=== PATIENT | female | born 1940 | race Caucasian/White ===

== ENCOUNTER → 2017-12-07 13:41 | Outpatient (CLI) | payer MEDICARE, OTHER, SELFPAY ==
[2017-12-07 14:33] LABS: Absolute Lymphocyte Count 2.69 X10^3/ul (0.83-4.51); Absolute Neutrophil Count 3.8 X10^3/uL (2.0-7.7); Basophil# 0.07 X10^3/uL; Eosinophil# 0.17 X10^3/uL; Eosinophils% 2.4 % (0-5); Hematocrit 40.6 % (37-47); Hemoglobin 13.3 g/dl (12.0-15.0); Lymphocyte # 2.69 X10^3/ul (4.0); Lymphocyte % 37.9 % (19-41); Mean Corp Hgb Conc 32.8 g/gl (32-36); Mean Corpuscular Volume 91.4 fL (81-99); Mean Platelet Vol. 9.7 fl (6.2-12.0); Monocyte# 0.35 X10^3/uL; Monocyte% 4.9 % (0-10); Neutrophil # 3.81 X10^3/uL (2.7-7.7); Neutrophil % 53.7 % (47-70); Platelet Count 441 K/mm3 (150-450); RBC Distribution Width CV 13.5 % (11.6-14.6); RBC Distribution Width SD 44.8 fl (35.1-43.9); Red Blood Count 4.44 M/mm3 (4.2-5.4); White Blood Count 7.1 K/mm3 (4.4-11.0)
[2017-12-07 14:38] LABS: POSITIVE COUNT NO; POSITIVE DIFFERENTIAL NO; POSITIVE MORPHOLOGY NO
[2017-12-07 14:48] LABS: ALB/GLOB Ratio 1.2 RATIO (0.9-2.4); AST(SGOT) 20 U/L (15-37); Alanine Aminotransfer ALT/SGPT 24 U/L (13-56); Albumin, Serum 4.2 g/dL (3.2-5.0); Alkaline Phosphatase 87 U/L (45-117); Anion Gap 5 (5-15); BUN 15 mg/dL (7-18); BUN/Creat Ratio 21.1 RATIO (10-20); Chloride 104 mmol/L (98-107); Creatinine, Serum 0.71 mg/dL (0.55-1.02); EST Glomerular Filtration Rate 85 mL/min (>60); Est Glom Filt Rate - Afr Amer 103 mL/min (>60); Globulin 3.4 g/dL (2.2-4.2); Glucose 81 mg/dL (74-106); Potassium 4.6 mmol/L (3.5-5.1); Protein, Total 7.6 g/dL (6.4-8.2); Sodium Level 139 mmol/L (136-145); Thyroid Stim Hormone (TSH) 1.78 uIU/mL (0.358-3.74)
[2017-12-07 14:50] LABS: Vitamin D,25 Hydroxy 29.6 ng/mL (29.95-100.01)
== END ==
PROVIDERS: Family Provider Family Medicine Geriatric Medicine; PCP Family Medicine Geriatric Medicine; Visit Provider Family Medicine Geriatric Medicine
DX: E55.9 Vitamin D deficiency, unspecified (principal); R53.83 Other fatigue
CPT/HCPCS: 36415; 80053; 82306; 84443; 85025

== ENCOUNTER → 2019-03-04 | Outpatient (CLI) | payer MEDICARE, OTHER, SELFPAY ==
[2017-05-11 22:19] VITALS: BMI 21.9
--- NOTE | 2019-03-04 10:45 | FLU_PTH ---
PATIENT: AISHA UNDERWOOD LOC: [facility] U#:[id number] AGE/SX: 79/F ROOM: RE03/04/[address]: Dr. Guadalupe Mitchell MD : 1940 BED: DIS: 03/04/2019 SPEC #: [id number] RECD: 03/04/19 18:55 STATUS: JEISON REMarkell #: [id number] STACI: 03/04/19 10:[address]: Guadalupe Mitchell DEPT: CYTOLOGY RECD BY: Agatha Patel ENTERED: 03/07/19 09:59 SP TYPE: Fluid OTHR DR: Dr. Jose Centeno MD Tissues: CYST Procedures: Special Stain Group II Surgery Specimen Level IV Cytospin Fluid HEADER OPERATION: Ultrasound guided left breast cyst aspiration PRE-OP DIAGNOSIS: Left breast cyst TISSUE SUBMITTED: Left breast cyst fluid for cytology DIAGNOSIS CYTOLOGY Fine needle aspiration, left breast cyst fluid (cytospin and cell block): Rare apocrine cells present. See comment. AM:quinten 03/08/19 COMMENT There is no evidence of malignancy. Clinical correlation is suggested. CYTOLOGY STUDY Slides are reviewed. CYTOLOGY GROSS Received is 30 ml of colorless hazy fluid labeled with the patient's name and and designated per the requisition as Left breast cyst fluid. Submitted for cytology preparation including cell block. /CC:cc 03/07/19 TC:5 CPT: 25028, 57916
== END | disposition home or self-care (01) ==
LOC: LABSPEC 03-07 10:55
PROVIDERS: Family Provider Family Medicine Geriatric Medicine; PCP Family Medicine Geriatric Medicine; Referring Provider Surgery; Visit Provider Surgery
DX: N60.01 Solitary cyst of right breast (principal)
CPT/HCPCS: 88108; 88304; 88305; 88313

== ENCOUNTER → 2020-10-16 12:18 | Outpatient (CLI) | payer MEDICARE, OTHER, SELFPAY ==
--- NOTE | 2020-10-16 | IMM_PTH ---
PATIENT: AISHA UNDERWOOD LOC: [facility] U#:[id number] AGE/SX: 85/F ROOM: RE10/16/[address]: Dr. Guadalupe Mitchell MD : 1940 BED: DIS: SPEC #: [id number] RECD: 10/18/20 11:37 STATUS: JEISON REQ #: [id number] STACI: 10/16/20 00:[address]: Guadalupe Mitchell DEPT: IMMUNOHISTOCHEMISTRY RECD BY: Kelsy Aguilar ENTERED: 10/18/20 11:38 SP TYPE: IMMUNO OTHR DR: Dr. Lupis Amezcua MD Tissues: Right breast, NOS Procedures: CALPONIN-1 (add) CK8 (add) E-CAD (add) HER2 YEE (add) CO (add) P40 (add) ER (initial) PHYSICIAN & INSTITUTION [place] [id number] SPECIMEN INFORMATION: Tissue Source: Right breast, 7 o'clock posterior depth, stereotactic core biopsy Clinical Info: Right breast, 7 o'clock posterior depth Specimen Number: [id number] #2 CPT code: 61046, 40676 x3, 80746 x3 METHODOLOGY: Deparaffinized sections of prefer/formalin-fixed tissue or PAP/DQ stained slides are incubated with monoclonal/polyclonal antibodies/oligonucleotide probes. Localization is made via biotin free immunoperoxidase method. Appropriate controls are performed and reacted as expected. Results on target cell population are indicated in the following table: RESULTS: ANTIBODY / CLONE RESULT Block 2 E-Cad (ECH-6) positive CK8 (88zqgbH70) positive Calponin-1 (NY645Q) positive P40 (BC28) positive MORPHOMETRIC ANALYSIS ER (clone 6F11) positive (>95%, strong intensity) CO (clone 16/1E2) positive (variable, 45 to 95%, moderate intensity) Her-2Neu (clone CB11) negative (0) The prognostic test for HER2 is performed on formalin-fixed paraffin embedded tissue. A 3+ (positive) staining pattern is defined as intense, homogeneous, complete, circumferential membranous staining in >10% of contiguous tumor cells. A similar weak (2+) staining pattern is interpreted as equivocal. LEBRON follow-up testing is recommended for all equivocal cases. Positivity/negativity for ER/CO is reported if > or < 1% of the tumor cells are immuno- reactive, respectively. The ASCO/CAP criteria is used for scoring. Reference: Journal of Clinical Oncology, 2013; 31:4866-2231 & 2010; 16:8807-3985. Duration of fixation: 31 Hrs; Sample Adequate: Yes. These assays have not been validated on decalcified tissues. Results should be interpreted with caution given the likelihood of false negativity on decalcified specimens. These tests were developed and their performance characteristics determined by [facility]. They may not have been cleared or approved by the U.S. Food and Drug Administration. The FDA has determined that such clearance or approval is not necessary. The above immunohistochemical/dualISH markers are ordered and reviewed by the Pathologist. INTERPRETATION: Right breast, 7 o'clock posterior depth, stereotactic core biopsy: Ductal carcinoma in situ, intermediate nuclear grade. SJ:quinten 10/19/2020
--- NOTE | 2020-10-16 12:30 | BRBX_PTH ---
PATIENT: AISHA UNDERWOOD LOC: [facility] U#:[id number] AGE/SX: 85/F ROOM: RE10/16/[address]: Dr. Guadalupe Mitchell MD : 1940 BED: DIS: SPEC #: [id number] RECD: 10/16/20 13:26 STATUS: JEISON REQ #: [id number] STACI: 10/16/20 12:[address]: Guadalupe Mitchell DEPT: SURGICAL PATHOLOGY RECD BY: Agatha Patel ENTERED: 10/17/20 08:48 SP TYPE: BREAST BX OTHR DR: Dr. Lupis Amezcua MD Tissues: Right breast, NOS Procedures: Surgery Specimen Level IV HEADER OPERATION: Right breast stereotactic biopsy PRE-OP DIAGNOSIS: Right breast 7 o'clock posterior depth TISSUE SUBMITTED: Right breast core tissue ISCHEMIC TIME: 1 minute FIXATION TIME: 31 hours MICROSCOPIC DIAGNOSIS Right breast, 7 o'clock, posterior depth, stereotactic core biopsy: Ductal carcinoma in situ with the following characteristics: Pattern - comedo, solid and cribriform. Nuclear Grade - intermediate Necrosis - present, central (Expansive, comedo necrosis). Calcifications - present See comment. GLORY:quinten 10/18/2020 COMMENT Immunohistochemistry ([id number]) supports the above diagnosis. ER/IL/Woi0xkc studies are being performed on sections of tumor and the results from this study will be reported separately ([id number]). Case has been reviewed in consultation with Dr. Belle who concurs with the above diagnosis. IDC:AM MICROSCOPIC DESCRIPTION Slides are reviewed. GROSS DESCRIPTION Received in fixative is one container labeled with the patient name and designated right breast. The specimen consists of multiple elongated fragments of [place]-yellow fibroadipose mixed with blood clot tissue that in aggregate measure 7.5 x 3 x 0.3 cm. The entire specimen is submitted in three cassettes. / GLORY:quinten 10/17/20 TC:0 CPT: 64082 ADDENDUM ADDENDUM ADDENDUM ADDENDUM ADDENDUM ADDENDUM ADDENDUM ADDENDUM ADDENDUM ADDENDUM ADDENDUM 11/22/2020 10:22 ADDENDUM 11/22/2020 10:22 ADDENDUM 11/22/2020 10:22 ADDENDUM 11/22/2020 10:22 ADDENDUM 11/22/2020 10:22 This addendum is added to incorporate an outside pathology consultation report. The case was examined at [facility] (#[id number]) and the following diagnosis was rendered. 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 Please see complete above mentioned consultation report in EMR
--- NOTE | 2020-10-17 16:02 | OP.PCM_ITS ---
Report of Operation Date of Procedure: 10/16/20 Pre-Operative Diagnosis: abnormal calcifications on right breast mammograms Post-Operative Diagnosis: same Surgery/Procedure Performed:: right breast stereotactic breast biopsy Description of Surgical Findings:: wide swath of calcifications in lower outer right breast, marker clip could not be visualized in conventional mammogram views but biopsy cavity pockets were visualized. Type of Anesthesia:: Local - 1% xylocaine Specimen's removed: right breast tissue Estimated Blood Loss (mL): minimal Description of Procedure: After informed consent was given, the patient was brought into the Breast Biopsy suite. Appropriate time out protocol was followed. The patient was placed in the prone position on the stereotactic biopsy table. The patient?s right breast was then placed in the opening at the head of the biopsy table. A carton marker machine compression mammogram was then obtained in the lateral view. The suspicious radiological lesion was thus identified. Stereo pictures of the lesion were then taken for XYZ coordinates. The Mammotome biopsy stylus was then positioned where it would be entering into the patient?s breast. The skin at this site was then cleansed with a surgical skin preparation. The skin and subcutaneous tissues at this site were then infiltrated with 1% xylocaine. A small skin incision was made with an 11 blade scalpel. The biopsy stylus was then positioned into the patient?s breast at the proper coordinates of depth. Using the Mammotome vacuum-assist device, several core samples of breast tissue were obtained. A specimen mammogram was the obtained. It revealed that the abnormal calcifications were within the specimen. I reviewed this personally and conclud ed that the tissue sampling was adequate for this site. The patient was extremely uncomfortable with complaint of neck pain on the biopsy table and therefore no further sampling was done. The abnormality was a wide swath of calcifications in the area - extending 3-4 cm and it had been planned to take two biopsies, however, it was felt that patient would not tolerate this and therefore will await pathology results.. A hemostatic marker clip was then placed into the biopsy cavity and a carton marker machine film revealed that it was properly deployed. The patient was then placed in the upright sitting position and pressure was applied to the breast until no active bleeding was noted. Steristrips were applied to reapproximate the skin. A unilateral mammogram in the CC and MLO view were then taken for which the marker clip could not be visualized due to the positioning of the patient. Multiple view, including exaggerated views were obtained, however at this point in time, patient was uncomfortable and therefore further studies were aborted. Will await pathology results. The patient tolerated the procedure and was discharged from the Breast Biopsy suite in good condition. - Complications none noted
== END ==
PROVIDERS: PCP Internal Medicine; Referring Provider Surgery; Visit Provider Surgery
DX: D05.11 Intraductal carcinoma in situ of right breast (principal)
CPT/HCPCS: 19081; 88305; 88341; 88342; J7050; A4648

== ENCOUNTER 2023-06-26 07:49 | Emergency (ER) | payer MEDICARE, OTHER, SELFPAY ==
[2023-06-26 07:50] VITALS: BP 154/81; PULSE 95; RESP 16; TEMP 37.7; O2SAT 98; BMI 24.3
[2023-06-26 08:06] VITALS: O2SAT 98
--- NOTE | 2023-06-26 08:13 | ED.VIS.CHEST ---
HPI History of Present Illness Chief Complaint: Cold Sx Informant: patient Onset/Context/Timing Onset: Month(s) Activity at onset: gradual Timing: Continuous Quality: Positive for Burning Location: Substernal Worsened By: Eating Relieved By: Nothing Associated Symptoms: Positive for Nausea, Cough, Lightheadedness and Acid Reflux; Negative for Vomiting, Diaphoresis, Dyspnea, Fever or Palpitations Narrative Narrative: Patient presents with lower substernal chest pain that has been constant for months. Patient states that she went to the urgent care today and then was referred to the emergency department. Patient describes her pain as burning. Patient states it is over the lower substernal area. Patient states it is worse with eating. Patient states nothing makes it better. Patient admits to some nausea but denies any vomiting. Patient admits to a chronic cough. Patient also admits to some lightheadedness. Patient denies any diaphoresis. Patient denies any palpitations. [facility] Medical History Breast cancer Bronchitis COVID Home Medications esomeprazole magnesium 20 mg capsule,delayed release (Nexium) 20 mg PO PRN PRN REFLUX 05/11/17 [History Last Taken Unknown] Allergy/AdvReac Type Severity Reaction Status Date / Time amoxicillin Allergy Mild Other Verified 06/26/23 08:00 lincomycin [From Lincocin] Allergy Hives Verified 06/26/23 07:50 Sulfa (Sulfonamide Allergy Hives Verified 06/26/23 07:50 Antibiotics) alendronate sodium AdvReac Mild Other Verified 06/26/23 08:00 [From Fosamax] Surgical History History of appendectomy Social History Smoking Status: Never smoker ROS ROS ED Constitutional Constitutional ED: Reports fever(s) and subjective; Denies chills Eyes Eyes: Denies blurry vision or change in vision ENT ENT ED: Reports ear pain and sore throat; Denies rhinorrhea Cardiovascular Cardiovascular: Reports chest pain; Denies palpitations Respiratory/Chest Respiratory/Chest: Reports cough; Denies dyspnea Gastrointestinal Gastrointestinal: Reports nausea; Denies vomiting Genitourinary Genitourinary ED: Denies dysuria or hematuria Musculoskeletal Musculoskeletal: Reports arthralgias and myalgias Integumentary Denies abscess or rash Neurologic Neurologic: Reports headache(s); Denies weakness Allergic/Immunologic Allergic/Immunologic ED: Denies mouth swelling or urticaria EXAM Physical Exam Const Vital Signs: 06/26/23 07:50 06/26/23 08:02 06/26/23 08:06 Temperature 99.9 F H Temperature Source Temporal Pulse Rate 95 Respiratory Rate 16 Respiratory Effort Normal Non-Labored Normal Non-Labored Respiratory Depth Respiratory Pattern Normal Blood Pressure 154/81 H Blood Pressure Mean 105 Pulse Ox 98 Oxygen Delivery Method Room Air 06/26/23 08:06 Temperature Temperature Source Pulse Rate Respiratory Rate Respiratory Effort Normal Non-Labored Respiratory Depth Normal Respiratory Pattern Normal Blood Pressure Blood Pressure Mean Pulse Ox Oxygen Delivery Method Room Air Positive well nourished and well developed General Appearance ED: well developed and NAD HEENT Reports moist mucous membranes Neck supple and no JVD Chest Wall inspection of chest normal Chest Narrative: There is mild tenderness over the lower substernal area. Resp normal respiratory effort and clear to auscultation bilaterally Cardio regular rate and regular rhythm GI soft to palpation and non-distended GI Narrative: There is mild tenderness over the epigastric area. There is no rebound or guarding noted. Extremity normal to inspection General Extremety ED: Negative for edema or tenderness General Extremity: Negative for edema Neuro oriented x3, CN's II-XII intact bilaterally and no sensory deficits noted Sensorium / Orientation: awake and alert Motor Exam: strength 5/5 throughout Psych mental status grossly normal Heart Score History: Slightly/Non-Suspicious ECG: Normal Age: >/= 65 years Risk Factors: No Risk Factors Score: 2 MDM MDM MDM Narrative Medical decision making narrative: Differential diagnosis includes gastritis, gastroesophageal reflux disease, esophagitis, cardiac dysrhythmia, cardiac ischemia, pneumonia, COVID-19 infection, and influenza infection. EKG will be obtained to assess for cardiac dysrhythmia and cardiac ischemia. Chest x-ray will be obtained to assess for pneumonia and pneumothorax. CBC will be obtained to assess for leukocytosis and anemia. Basic metabolic profile will be obtained to assess for electrolyte abnormality and renal function. High-sensitivity troponin will be obtained to assess for cardiac ischemia. COVID-19 rapid antigen will be obtained to assess for COVID-19 infection. Influenza A and influenza B antigens will be obtained to assess for influenza infection. Lab Data Attestation: I reviewed the patient's lab results. Lab results narrative: CBC was reviewed and was within normal limits. Basic metabolic profile was reviewed and was within normal limits. High-sensitivity troponin was reviewed and was normal at 7. Urinalysis was reviewed. There is no evidence of urinary tract infection or hematuria. COVID-19 rapid antigen was reviewed and was negative. Influenza A and influenza B antigens were reviewed and were negative. Labs: Laboratory Results - last 24 hr 06/26/23 06/26/23 08:34 09:17 WBC 7.8 RBC 4.42 Hgb 12.8 Hct 40.3 MCV 91.2 MCH 29.0 MCHC 31.8 L RDW Std Deviation 44.4 H RDW Coeff of Karina 13.2 Plt Count 291 MPV 8.8 Immature Gran % (Auto) 0.300 Neut % (Auto) 68.3 Lymph % (Auto) 20.7 [place] % (Auto) 8.2 Eos % (Auto) 1.9 Baso % (Auto) 0.6 Absolute Neuts (auto) 5.3 Absolute Lymphs (auto) 1.61 Nucleated RBC % 0 Sodium 136 Potassium 3.6 Chloride 102 Carbon Dioxide 31.0 Anion Gap 3 L BUN 15 Creatinine 0.74 Estim Creat Clear Calc 39.03 Est GFR (MDRD) Af Amer 97 Est GFR (MDRD) Non-Af 80 BUN/Creatinine Ratio 20.4 H Glucose 105 Calcium 9.0 Troponin I High Sens 7 Urine Color Yellow Urine Clarity Clear Urine pH 6.0 Ur Specific [place] 1.020 Urine Protein 15 H Urine Glucose (UA) Normal Urine Ketones Negative Urine Occult Blood Negative Urine Nitrite Negative Urine Bilirubin Negative Urine Urobilinogen Normal Ur Leukocyte Esterase Negative Urine RBC 0 SEEN Urine WBC 0 SEEN Ur Squamous Epith Cells 0-5 SEEN Urine Bacteria 0 SEEN Urine Mucus 0 SEEN Radiography Diagnostic Testing: Clinical Impression(s) from Imaging Studies Chest X-Ray 06/26/23 08:20 IMPRESSION: Hyperinflation. No acute abnormality is seen. Electronically Signed: Leopoldo Carey MD at 9:26 EST , Portable 1 view chest x-ray was obtained. On my independent interpretation, lung ruiz are clear. There is normal cardiac silhouette. Bony thorax is normal. There is no acute process noted. Radiologist also interpreted the x-ray and agrees. EKG Initial EKG: Attestation: I personally reviewed and interpreted this EKG as follows: Interpretation: Sinus Rhythm (95) and No Acute Injury Pattern Comments: EKG was obtained. On my independent interpretation, it showed a normal sinus rhythm with a rate of 95. NE interval, QRS interval, and QTc intervals were all normal. [place] was normal. There are no acute ST or T wave changes. Prior: Unchanged (05/12/2017) Treatment and Re-Evaluation :: Patient was given a GI cocktail here. Patient was given aspirin. Patient is feeling better on reevaluation. Patient states her symptoms have completely resolved. Patient was advised that this is most likely from esophageal reflux and esophagitis. Patient was instructed to continue her Nexium as previously prescribed. Patient was instructed to follow-up with her primary care physician in 5 to 7 days. Patient was instructed use [id number]-vtk-vfcprcy antiacids as needed. Patient understood and was agreeable with the plan. All questions were answered. Discharge Plan Triage Chief Complaint: Cold Sx ED Provider: Shaan Ferrell Dx/Rx/DC Orders Clinical Impression: Gastroesophageal reflux disease, Chest pain Instructions: ED Chest Pain, Uncertain Cause, ED GERD (Adult) Prescriptions: No Action esomeprazole magnesium [Nexium] 20 MG capsule 20 mg PO PRN PRN (Reason: REFLUX) Primary Care Provider: Lupis Amezcua Referrals: Lupis Amezcua MD [Primary Care Provider] - 5-7 Days Activity Restrictions/Additional Instructions: Continue your Nexium as previously prescribed. You may also use [id number] antacids as needed. Disposition Disposition: Home, Self Care
--- NOTE | 2023-06-26 08:20 | RAD_ITS ---
STUDY: X-RAY CHEST REASON FOR EXAM: Female, 83 years old. Chest pain TECHNIQUE: Single AP portable view of the chest. COMPARISON: None. FINDINGS: EKG electrodes are seen. Surgical clips are seen overlying the right breast. Hyperinflation. Calcified granuloma in the right lower lobe. There is no demonstrated pleural abnormality. Normal size heart. Normal mediastinum and jah. Normal visualized pulmonary arteries. There is atherosclerotic calcification of the aortic arch with tortuosity. There is a dextroscoliosis of the thoracic spine. Normal visualized ribs, clavicles, and shoulders. There is no demonstrated abnormality of the visualized soft tissue structures of the upper abdomen. RAD/Chest 1 View (Portable) IMPRESSION: Hyperinflation. No acute abnormality is seen. Electronically Signed: Leopoldo Carey MD at 9:26 EST ,
--- NOTE | 2023-06-26 08:20 | EKG12_ITS ---
Test Reason : CP Blood Pressure : / mmHG Vent. Rate : 095 BPM Atrial Rate : 095 BPM P-R Int : 150 ms QRS Dur : 092 ms QT Int : 330 ms P-R-T Axes : 075 066 058 degrees QTc Int : 414 ms Normal sinus rhythm Normal ECG Confirmed by OBIE HESS, RUEL ([id number]), legal editor CHAPIS VENCES ([id number]) on 06/29/2023 10:13:03 AM Referred By: KARLEY Confirmed By:RUEL RAGLAND MD
[2023-06-26] MEDS: Aspirin 81 MG TAB.CHEW 324 MG PO (08:37)
[2023-06-26] MEDS: Mag Hydrox/Al Hydrox/Simeth 30 ML UDC PO (08:38)
[2023-06-26 08:43] LABS: Absolute Lymphocyte Count 1.61 X10^3/uL (0.83-4.51); Absolute Neutrophil Count 5.3 X10^3/uL (2.0-7.7); Basophil# 0.05 X10^3/uL; Basophil% 0.6 % (0-1); Eosinophil# 0.15 X10^3/uL; Eosinophils% 1.9 % (0-5); Hematocrit 40.3 % (37-47); Hemoglobin 12.8 g/dL (12.0-15.0); Lymphocyte # 1.61 X10^3/ul (0.83-4.51); Lymphocyte % 20.7 % (19-41); Mean Corp Hgb Conc 31.8 g/dL (32-36); Mean Corpuscular Volume 91.2 fL (81-99); Mean Platelet Vol. 8.8 fl (6.2-12.0); Monocyte# 0.64 X10^3/uL; Monocyte% 8.2 % (0-10); NRBC Flagged by Analyzer 0 % (0-5); Neutrophil # 5.31 X10^3/uL (2.7-7.7); Neutrophil % 68.3 % (47-70); Platelet Count 291 K/mm3 (150-450); RBC Distribution Width CV 13.2 % (11.6-14.6); RBC Distribution Width SD 44.4 fl (35.1-43.9); Red Blood Count 4.42 M/mm3 (4.2-5.4); White Blood Count 7.8 K/mm3 (4.4-11.0)
[2023-06-26 08:59] LABS: Anion Gap 3 (5-15); BUN 15 mg/dL (7-18); BUN/Creat Ratio 20.4 RATIO (10-20); Chloride 102 mmol/L (98-107); Creatinine, Serum 0.74 mg/dL (0.55-1.02); EST Glomerular Filtration Rate 80 mL/min (>60); Est Glom Filt Rate - Afr Amer 97 mL/min (>60); Estimated Creatinine Clearance 39.03 ml/min; Glucose 105 mg/dL (74-106); Potassium 3.6 mmol/L (3.5-5.1); Sodium Level 136 mmol/L (136-145); Troponin-I HS 7 pg/mL (3.0-54.0)
[2023-06-26 09:21] LABS: Bacteria 0 SEEN /hpf (None Seen); Mucous, Urine 0 SEEN /hpf (<or=2+); Red Blood Cells-Urine 0 SEEN /hpf (0-5); White Blood Cells 0 SEEN /hpf (0-5)
[2023-06-26 09:29] LABS: Color, Urine Yellow (Yellow); Glucose, Dipstick Normal (Normal); Ketone-Dipstick Negative (Negative); Leukocyte Esterase-Dipstick Negative /ul (Negative); Nitrite-Dipstick Negative (Negative); Occult Blood-Urine Negative /ul (Negative); Protein-Dipstick 15 mg/dl (Negative); Urine Bilirubin Dipstick Negative (Negative); Urine Clarity Clear (Clear); Urine Urobilinogen Normal (Normal)
[2023-06-26 09:34] LABS: Squamous Epithelial Cells - UA 0-5 SEEN /hpf (5-10)
[2023-06-26 10:19] VITALS: BP 120/60; PULSE 80; PULSE 82; RESP 16; O2SAT 95; O2SAT 96
== END 2023-06-26 10:24 | disposition home or self-care (01) ==
PROVIDERS: Emergency Provider Emergency Medicine; PCP Internal Medicine; Visit Provider Emergency Medicine
DX: R07.2 Precordial pain (principal); K21.9 Gastro-esophageal reflux disease without esophagitis; Z85.3 Personal history of malignant neoplasm of breast; Z90.49 Acquired absence of other specified parts of digestive tract
CPT/HCPCS: 71045; 80048; 81001; 84484; 85025; 87428; 93005; 99285; A4216